=== PATIENT | male | born 1985 | race Caucasian/White ===

== ENCOUNTER 2018-01-04 09:44 | Emergency (ER) | payer OTHER ==
[~2018-01-04] VITALS: Ht 185.4 cm; Wt 102.7 kg
[2018-01-04 10:51] VITALS: BP 142/102
== END 2018-01-04 10:51 | disposition home or self-care (01) ==
LOC: EME 09:44
DX: S01.01XA Laceration without foreign body of scalp, initial encounter (principal); W22.09XA Striking against other stationary object, initial encounter; Z23 Encounter for immunization
CPT/HCPCS: 99281; 99284